=== PATIENT | female | born 1980 | race African-American/Black ===

== ENCOUNTER 2018-08-05 22:29 | Emergency (ER) | payer SELFPAY ==
[~2018-08-05] VITALS: Ht 170.2 cm; Wt 115.7 kg
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
[2018-08-05] MEDS: HYDROcodone/APAP 5/325MG 1 TAB TABLET PO ONE (23:31)
[2018-08-05] MEDS: DIPHTH,PERTUSS(ACELL),TET TOX 0.5 ML DISP.SYRIN. VAX IM ONE (23:33)
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
[2018-08-05] MEDS ORDERED: TRAM50TA PO (23:59)
[2018-08-05] MEDS ORDERED: MELO7.5T29 PO (23:59)
[2018-08-06 00:11] VITALS: BP 141/77
== END 2018-08-06 00:12 | disposition home or self-care (01) ==
LOC: ER 22:29 → EEVIPCON 22:29 → ER 08-06 00:12
DX: S00.83XA Contusion of other part of head, initial encounter (principal); S00.511A Abrasion of lip, initial encounter; E11.9 Type 2 diabetes mellitus without complications; I10 Essential (primary) hypertension; Y04.0XXA Assault by unarmed brawl or fight, initial encounter; Y93.89 Activity, other specified; Y92.89 Other specified places as the place of occurrence of the external cause; Y99.8 Other external cause status
CPT/HCPCS: 70486; 81025; 90471; 90715; 99284-25

== ENCOUNTER → 2020-05-16 | Emergency (ER) | payer SELFPAY ==
[~2020-05-16] VITALS: Ht 170.2 cm; Wt 106.8 kg
[~2020-05-16] MED LIST: HYDR-2155 PO; HYDROcodone/APAP 5/325MG 1 TAB TABLET PO ONE; IBUP600T16 PO; IBUPROFEN 600 MG TABLET. PO ONE; LIDOCAINE 2% TOPICAL JELLY 5GM TUBE. TP ONE; MELO7.5T29 PO; TRAM50TA PO
--- NOTE | 2020-05-16 16:07 | PHYS DOC ---
Past History Past Medical History: Diabetes, Uterine Fibroids (FIORELLA FELDMAN APRN) Past Surgical History: No Surgical History (FIORELLA FELDMAN APRN) Alcohol Use: None (FIORELLA FELDMAN APRN) Adult General Chief Complaint Chief Complaint: HEMORRHOIDS HPI HPI Patient is a 39 year old female presents emergency department complaining of hemorrhoid pain for the past 3 days. Patient states she had a normal BM today, states she sometimes has loose stools and sometimes has hard stools but has not had any abnormal stools lately. Patient states she notices hemorrhoid, up this past Sunday and did not resolve with taking a bath 1 time daily and 1 application of Preparation H yesterday. Patient reports a 10/10 pain on a 1-10 pain scale. Patient denies any blood in her stools, denies any rectal bleeding. Patient denies abdominal pains, nausea, vomiting. Patient denies chest pain or shortness of breath. Patient denies dizziness or visual changes. Patient denies rashes of her skin. (FIORELLA FELDMAN APRN) Review of Systems Review of Systems 14 body systems of review of systems have been reviewed. See HPI for pertinent positives and negative responses, otherwise all other systems are negative, nonpertinent or noncontributory. (FIORELLA FELDMAN APRN) Current Medications Current Medications Current Medications Medications (Trade) Dose Ordered Sig/Ethel Start Time Stop Time Status Last Admin Dose Admin Acetaminophen/ Hydrocodone Bitart (Lortab 5/325) 2 tab 1X ONCE 05/16/20 14:45 05/16/20 15:00 DC 05/16/20 15:00 2 TAB Ibuprofen (Motrin) 600 mg 1X ONCE 05/16/20 14:45 05/16/20 15:00 DC 05/16/20 15:00 600 MG Lidocaine HCl (Xylocaine 2% Topical 5gm Tube) 1 peter 1X ONCE 05/16/20 15:30 05/16/20 15:31 DC 05/16/20 15:37 1 PETER (FIORELLA FELDMAN APRN) Allergies Allergies Allergies Coded Allergies Type Severity Reaction Last Updated Verified No Known Drug Allergies 08/05/18 No (FIORELLA FELDMAN APRN) Physical Exam Physical Exam Constitutional: Well developed, well nourished, no acute distress, non-toxic appearance. 39-year-old female in no apparent distress. HENT: Normocephalic, atraumatic, bilateral external ears normal, oropharynx moist, no oral exudates, nose normal. Eyes: PERRLA, EOMI, conjunctiva normal, no discharge. Neck: Normal range of motion, no tenderness, supple, no stridor. Cardiovascular:Heart rate regular rhythm, no murmur Lungs & Thorax: Bilateral breath sounds clear to auscultation Abdomen: Bowel sounds normal, soft, no tenderness, no masses, no pulsatile masses. Skin: Warm, dry, no erythema, no rash. Back: No tenderness, no CVA tenderness. Extremities: No tenderness, no cyanosis, no clubbing, ROM intact, no edema. Neurologic: Alert and oriented X 3, normal motor function, normal sensory function, no focal deficits noted. Psychologic: Affect normal, judgement normal, mood normal. : External rectal examination performed with female ED nurse escort. 6 mm diameter nonthrombosed, nonstrangulated, nonerythematous, skin intact hemorrhoid at the 3 o'clock position. Soft and fluctuant to palpation. No bleeding around the rectum appreciated. No lesions around the rectal area or adjacent skin surfaces appreciated. (FIORELLA FELDMAN APRN) Current Patient Data Vital Signs Vital Signs Date Time Temp Pulse Resp B/P (MAP) Pulse Ox O2 Delivery O2 Flow Rate FiO2 05/16/20 15:00 20 05/16/20 13:55 98.9 90 152/68 (96) 100 Room Air (FIORELLA FELDMAN APRN) EKG EKG [] (FIORELLA FELDMAN APRN) Radiology/Procedures Radiology/Procedures [] (FIORELLA FELDMAN APRN) Heart Score C/O Chest Pain: No Risk Factors: Risk Factors: DM, Current or recent (<one month) smoker, HTN, HLP, family history of CAD, obesity. Risk Scores: Risk Factors: DM, Current or recent (<one month) smoker, HTN, HLP, family history of CAD, obesity. (FIORELLA FELDMAN APRN) Course & Med Decision Making Course & Med Decision Making Pertinent Labs and Imaging studies reviewed. (See chart for details) 39-year-old female, vital signs reviewed, reports emergency department concerning for a painful hemorrhoid since this past Amol. Physical examination revealed a 6 mm hemorrhoid in the 3 o'clock position. Reviewed case with ED attending Dr. Ackerman, Dr. Ackerman examined patient at bedside. No recommendation for I&D procedure needed. This does not appear to be a surgical case at this time. We will treat with p.o. pain medications and topical lidocaine in the ED. Discussed with patient treatment at home, sits baths at least 3 times a day and warm bath water for soaks. Preparation H or Tucks topical treatments daily, will give prescription for narcotic pain medication, will recommend no driving and no heavy machinery use, will give prescription for 600 mg ibuprofen. Will give patient Dr. Cisneros's information for surgical follow-up if needed. This does not look infected, no antibiotic prophylaxis will be started. Patient gave verbal understanding of discharge home instructions, pain medication use, narcotic pain medication use, sitz bath as, topical anesthesia ointment applications, follow-up with Dr. Brower if needed, return to ER precautions or concerns, patient will be given a primary care physician to see for ongoing problems. Patient was discharged home without incident. (FIORELLA FELDMAN APRN) Course & Med Decision Making I oversaw care of patient while in ER and discussed case with LANGUAGE TEACHER. I saw patient and repeated aspects of HPI and PE, no indication for ER intervention and/or transfer. I agree to note, plan of care and dispo as stated. Electronically signed, Дмитрий Ackerman DO (ДМИТРИЙ ACKERMAN DO) Adrienne Disclaimer Dragdavid Disclaimer This electronic medical record was generated, in whole or in part, using a voice recognition dictation system. (FIORELLA FELDMAN APRN) Departure Departure: Impression: Primary Impression: External hemorrhoid Disposition: 01 DC HOME SELF CARE/HOMELESS Condition: GOOD Referrals: PCP,NO (PCP) RAMIRO BROWER MD,KAMRAN BENITEZ Patient Instructions: Hemorrhoids Additional Instructions: Your hemorrhoid was evaluated in ER today, at this time he does not require any antibiotics, does not require surgical intervention or drainage. As we discussed please treat with bathtub soaking and warm water 3 times a day, apply [id number] Preparation H or Tucks pads for relief of pain, also use prescribed pain medication ibuprofen, and also use narcotic pain medication Center, please do not drive or use heavy machinery while taking narcotic pain medications. I have given you a primary care provider to see ELI Ballard if you are unable to obtain an appointment to see your own primary care provider. I have also given you a surgical consult physician Dr. Brower to see if hemorrhoids do not subside soon. Please return to the emergency department for worsening symptoms or other concerns. EMERGENCY DEPARTMENT GENERAL DISCHARGE INSTRUCTIONS Thank you for coming to [facility] (ED) today and trusting us with you care. We trust that you had a positivie experience in our Emergency Department. If you wish to speak to the department management, you may call the director at [phone]. YOUR FOLLOW UP INSTRUCTIONS ARE FOLLOWS: 1. Do you have a private Doctor? If you do not have a private doctor, please ask for a resource list of physicians or clinics that may be able to assist you with follow up care. 2. The Emergency Physician has interpreted your x-rays. The X-Ray specialist will also review them. If there is a change in the findings, you will be notified in 48 hours when at all possible. 3. A lab test or culture has been done, your results will be reviewed and you will be notified if you need a change in treatment. ADDITIONAL INSTRUCTIONS AND INFORMATION: 1. Your care today has been supervised by a physician who is specially trained in emergency care. Many problems require more than one evaluation for a complete diagnosis and treatment. We recommend that you schedule your follow up appointment as sharon mmended to ensure complete treatment of you illness or injury. If you are unable to obtain follow up care and continue to have a problem, or if your condition worsens, we recommend that you return to the ED. 2. We are not able to safely determine your condition over the phone nor are we able to give sound medical advice over the phone. For these safety reasons, if you call for medical advice we will ask you to come to the ED for further evaluation. 3. If you have any questions regarding these discharge instructions please call the ED at [phone]. SAFETY INFORMATION: In the interest of safety, wellness, and injury prevention; we encourage you to wear your sealbelt, if you smoke; quite smoking, and we encourage family to use a protective helmet for bicycling and other sporting events that present an increased risk for head injury. IF YOUR SYMPTOMS WORSEN OR NEW SYMPTOMS DEVELOP, OR YOU HAVE CONCERNS ABOUT YOUR CONDITION; OR IF YOUR CONDITION WORSENS WHILE YOU ARE WAITING FOR YOUR FOLLOW UP APPOINTMENT; EITHER CONTACT YOUR PRIMARY CARE DOCTOR, THE PHYSICIAN WHOSE NAME AND NUMBER YOU WERE GIVEN, OR RETURN TO THE ED IMMEDIATELY. Scripts Hydrocodone Bit/Acetaminophen (HYDROCODONE-APAP 5-325 ) 1 Each Tablet 1 TAB PO PRN Q6HRS PRN for PAIN, #15 TAB 0 Refills Prov: FIORELLA FELDMAN APRN 05/16/20 Ibuprofen (IBUPROFEN) 600 Mg Tablet 600 MG PO TID PRN PRN for PAIN, #20 TAB 0 Refills Prov: FIORELLA FELDMAN APRN 05/16/20 FIORELLA FELDMAN APRN May 16, 2020 16:07 ДМИТРИЙ ACKERMAN DO May 20, 2020 10:29
[2020-05-16 16:30] VITALS: BP 141/81
== END | disposition home or self-care (01) ==
LOC: ER 13:14
DX: K64.4 Residual hemorrhoidal skin tags (principal); E11.9 Type 2 diabetes mellitus without complications
CPT/HCPCS: 99283-25